=== PATIENT | male | born 1985 | race Two or more races ===

== ENCOUNTER 2016-12-24 00:06 | Emergency (ER) | payer MEDICAID ==
[~2016-12-24] VITALS: Ht 165.1 cm; Wt 90.7 kg
--- NOTE | 2016-12-24 00:21 | Emergency Room Report ---
History of Present Illness General Chief Complaint: To Be Triaged Source: Patient, Family Member Present Illness HPI EMS was called because the patient seizure. He has a history of seizures and has been noncompliant with his Keppra. He's been out of Keppra for several months. He hit his nose against the bureau when he seized this time. It was generalized tonoclonic seizure. He had a postictal period. He is now awake and near baseline. Paramedics state glucose was normal. He denies any fever. He feels weak his this time. Denies headache. Not bite his tongue. There's been no nausea vomiting or diarrhea. He has no dysuria. Patient is not depressed. It's possible that the lack of taking the medication was related to finances. Allergies: Coded Allergies: No Known Allergies (Unverified , 12/24/16) Patient History Past Medical History: see triage record Social History: Denies: alcohol use, drug use, smoking Social History Narrative Here with his mother Reviewed Nursing Documentation: PMH: Agreed, PSxH: Agreed Review of Systems All Other Systems: negative except mentioned in HPI Physical Exam Vital Signs Date Time Temp Pulse Resp B/P Pulse Ox O2 Delivery O2 Flow Rate FiO2 12/24/16 00:22 98.4 109 14 138/78 97 Room Air Sp02 EP Interpretation: reviewed, normal General Appearance: well appearing, no apparent distress, GCS 15 Head: normocephalic Eyes: bilateral eye PERRL, bilateral eye normal inspection ENT: moist mucus membranes, other - nasal swelling and abrasion Neck: supple, no bony tend Respiratory: chest non-tender, lungs clear, normal breath sounds Cardiovascular #1: regular rate, rhythm Cardiovascular #2: 2+ radial (R) Gastrointestinal: normal inspection, normal bowel sounds, non tender, no mass, non-distended Musculoskeletal: back normal, gait/station normal, normal range of motion Neurologic: alert, oriented x3, motor strength/tone normal, DTRs symmetric, sensory intact, cerebellar normal, normal gait, speech normal Psychiatric: depressed affect Skin: normal inspection, warm/dry, abrasions - nose Medical Decision Making Diagnostic Impression: Primary Impression: Seizure Additional Impressions: Non-compliance Nasal contusion ER Course Patient presents after tonoclonic seizure with known noncompliance. Differential includes noncompliance, electrolyte abnormality, breakthrough seizure amongst others. The patient will receive Ativan and Keppra here. In addition we will evaluate electrolytes and chest x-ray. As the patient has a history of seizures and is near baseline, a CT scan will not be performed. The nasal exam excludes a fracture. The patient will be reevaluated. Labs are unremarkable. CXR clear. The patient tolerated Keppra and Ativan while. He feels stronger. A prescription was given for Keppra. Patient is stable for outpatient observation and treatment. Alert and OX3 Laboratory Tests Test 12/24/16 01:00 12/24/16 01:50 White Blood Count 10.5 K/UL (4.8-10.8) Red Blood Count 5.19 M/UL (4.70-6.10) Hemoglobin 16.0 G/DL (14.2-18.0) Hematocrit 46.3 % (42.0-52.0) Mean Corpuscular Volume 89 FL (80-99) Mean Corpuscular Hemoglobin 30.9 PG (27.0-31.0) Mean Corpuscular Hemoglobin Concent 34.6 G/DL (32.0-36.0) Red Cell Distribution Width 12.1 % (11.6-14.8) Platelet Count 279 K/UL (150-450) Mean Platelet Volume 8.4 FL (6.5-10.1) Neutrophils (%) (Auto) 66.7 % (45.0-75.0) Lymphocytes (%) (Auto) 21.5 % (20.0-45.0) Monocytes (%) (Auto) 8.3 % (1.0-10.0) Eosinophils (%) (Auto) 2.1 % (0.0-3.0) Basophils (%) (Auto) 1.5 % (0.0-2.0) Sodium Level 139 mEQ/L (135-145) Potassium Level 3.7 mEQ/L (3.4-4.9) Chloride Level 102 mEQ/L (98-107) Carbon Dioxide Level 24 mEQ/L (20-30) Anion Gap 13 (5-15) Blood Urea Nitrogen 12 mg/dL (7-23) Creatinine 0.9 mg/dL (0.7-1.2) Estimate Glomerular Filtration Rate > 60 mL/min (>60) Glucose Level 121 mg/dL (74-106) H Calcium Level 9.0 mg/dL (8.6-10.2) Total Bilirubin < 0.2 mg/dL (0.0-1.2) Aspartate Amino Transferase (AST) 20 U/L (5-40) Alanine Aminotransferase (ALT) 28 U/L (3-41) Alkaline Phosphatase 63 U/L (40-129) Total Creatine Kinase 300 U/L (38-174) H Total Protein 7.1 g/dL (6.6-8.7) Albumin 4.4 g/dL (3.5-5.2) Globulin 2.7 g/dL Albumin/Globulin Ratio 1.6 (1.0-2.7) Urine Opiates Screen Negative (NEGATIVE) Urine Barbiturates Screen Negative (NEGATIVE) Phencyclidine (PCP) Screen Negative (NEGATIVE) Urine Amphetamines Screen Negative (NEGATIVE) Urine Benzodiazepines Screen Negative (NEGATIVE) Urine Cocaine Screen Negative (NEGATIVE) Urine Marijuana (THC) Screen Negative (NEGATIVE) EKG Diagnostic Results Rate: tachycardiac Rhythm: NSR ST Segments: no acute changes Rhythm Strip Diag. Results EP Interpretation: yes Rhythm: no PVC's, no ectopy, other - Sinus tachycardia Chest X-Ray Diagnostic Results Chest X-Ray Diagnostic Results : Chest X-Ray Ordered: Yes # of Views/Limited/Complete: 1 View Indication: Other Interpretation: no consolidation, no effusion, no pneumothorax, no acute cardiopulmonary disease Impression: No acute disease Interpreting ER Provider: Electronically signed by Daniel Tomlin MD Last Vital Signs Date Time Temp Pulse Resp B/P Pulse Ox O2 Delivery O2 Flow Rate FiO2 12/24/16 03:25 98.4 83 20 105/69 98 Room Air Status: improved Disposition: HOME, SELF-CARE Condition: Improved Scripts Levetiracetam (Keppra) 250 Mg Tablet 500 MG ORAL EVERY 12 HOURS, #50 TAB 0 Refills Prov: Daniel Tomlin M.D. 12/24/16 Daniel Tomlin M.D. Dec 24, 2016 00:21
[2016-12-24] MEDS ORDERED: LEVETIRACETAM500 M1 ORAL (00:25)
[2016-12-24] MEDS ORDERED: levETIRAcetam 500 MG in D5W 110 ML IVPB ONE (00:30)
[2016-12-24] MEDS ORDERED: LORazepam Inj 2mg/ml 1ml IV ONE (00:30)
[2016-12-24 00:45] VITALS: BP 120/82
[2016-12-24] MEDS ORDERED: levETIRAcetam 500mg vial IV ONE (01:08)
[2016-12-24 01:30] VITALS: BP 137/79
[2016-12-24 01:42] LABS: BASOPHILS % (AUTO) 1.5 % (0.0-2.0); EOSINOPHILS % (AUTO) 2.1 % (0.0-3.0); LYMPHOCYTES % (AUTO) 21.5 % (20.0-45.0); MEAN CORPUSCULAR HEMOGLOBIN 30.9 PG (27.0-31.0); MEAN CORPUSCULAR HGB CONC 34.6 G/DL (32.0-36.0); MEAN CORPUSCULAR VOLUME 89 FL (80-99); MEAN PLATELET VOLUME 8.4 FL (6.5-10.1); MONOCYTES % (AUTO) 8.3 % (1.0-10.0); NEUTROPHILS % (AUTO) 66.7 % (45.0-75.0); PLATELET COUNT 279 K/UL (150-450); RED BLOOD COUNT 5.19 M/UL (4.70-6.10); RED CELL DISTRIBUTION WIDTH 12.1 % (11.6-14.8); WHITE BLOOD COUNT 10.5 K/UL (4.8-10.8)
[2016-12-24 01:54] LABS: ALANINE AMINOTRANSFERASE 28 U/L (3-41); ALBUMIN/GLOBULIN RATIO 1.6 (1.0-2.7); ANION GAP 13 (5-15); ASPARTATE AMINO TRANSFERASE 20 U/L (5-40); CARBON DIOXIDE 24 mEQ/L (20-30); CHLORIDE 102 mEQ/L (98-107); CREATININE 0.9 mg/dL (0.7-1.2); GLOMERULAR FILTRATION RATE > 60 mL/min (>60); HEMOLYSIS 13; POTASSIUM 3.7 mEQ/L (3.4-4.9); SODIUM 139 mEQ/L (135-145); TOTAL PROTEIN 7.1 g/dL (6.6-8.7)
[2016-12-24] MEDS ORDERED: KEPPRA500 MG ORAL (02:58)
[2016-12-24 03:02] VITALS: BP 105/69
[2016-12-24 03:25] VITALS: BP 105/69
--- NOTE | 2016-12-25 12:03 | Diagnostic Imaging Report ---
Indication: Dyspnea Comparison: None A single view chest radiograph was obtained. Findings: Cardiomediastinal appearance is within normal limits for age. Pulmonary vascularity is appropriate. The lungs are clear but hypoinflated. The diaphragmatic contour is smooth and costophrenic angles are sharp. No pleural effusions are identified. The bones are unremarkable. Impression: No acute findings
== END 2016-12-24 03:25 | disposition home or self-care (01) ==
LOC: EMR 00:50
DX: G40.89 Other seizures (principal); S00.33XA Contusion of nose, initial encounter; Z91.19 Patient's noncompliance with other medical treatment and regimen; W22.09XA Striking against other stationary object, initial encounter; Y92.9 Unspecified place or not applicable
CPT/HCPCS: 36415; 71010; 80053; 80300; 82550; 82962; 85025; 93005; 96374; 96375; 99284; J1953